=== PATIENT | male | born 1980 | race Hispanic/Latino ===

== ENCOUNTER 2018-04-17 21:33 | Inpatient (IN) | payer OTHER ==
[2018-04-17 23:19] LABS: Hematocrit 52.2 % (35.5-45.6); Hemoglobin 17.4 gm/dl (11.8-15.2); Mean Corpuscular HGB Conc 33 % (32-34); Mean Corpuscular Hemoglobin 32 pg (28-32); Mean Corpuscular Volume 96 fl (84-94); Platelet Count 279 K/mm3 (140-440); Red Blood Count 5.46 M/mm3 (3.65-5.03)
[2018-04-17 23:31] LABS: INR 1.05 (0.87-1.13); Partial Thromboplastin Time 32.3 Sec. (24.2-36.6)
[2018-04-17 23:35] LABS: Bilirubin,Urine SM (Negative); Blood,Urine NEG (Negative); Color,Urine Amber (Yellow); Mucus,Urine 3+ /HPF
[2018-04-17 23:40] LABS: Albumin 4.3 g/dL (3.9-5); BUN/Creatinine Ratio 19; Blood Urea Nitrogen 15 mg/dL (9-20); Hemolysis Index 8; Lipase 39 units/L (13-60)
[2018-04-17 23:51] LABS: Ictotest,Urine Negative (Negative)
[2018-04-17 23:59] LABS: Alanine Aminotransferase 1618 units/L (7-56)
[2018-04-18] MEDS ORDERED: NACL 0.9% 1000 ML 1,000 ML IV ONE (02:27)
[2018-04-18] MEDS ORDERED: PROTONIX IV ONE (02:27)
[2018-04-18] MEDS ORDERED: ZOFRAN IV ONE (02:28)
--- NOTE | 2018-04-18 02:54 | Emergency Department Report ---
HPI - General Chief Complaint: Abdominal Pain Time Seen by Provider: 04/18/18 02:17 - HPI HPI: 38-year-old male presents to the emergency department with a complaint of severe upper abdominal pain along with nausea and vomiting that started this evening around 8 PM. He says that he has started to vomit up bile and stomach acid. He also complains of having some loose stool since this morning that has been lack in appearance. He denies any past medical history. He has not taken anything for her symptoms. Presentation. No recent travel or sick contacts at home. He denies any fever, dysuria, back pain, chest pain or shortness of breath. He does admit to heavy alcohol use but denies alcoholism or dependence. He dips tobacco but does not smoke. ED Past Medical Hx - Past Medical History Previous Medical History?: Yes Hx Hypertension: Yes (lisinopril) Hx Pulmonary Embolism: Yes (Anxiety) Hx GERD: Yes Additional medical history: taking testerone for muscle building, - Surgical History Past Surgical History?: Yes Additional Surgical History: left knee sx - Social History Smoking Status: Former Smoker Substance Use Type: Alcohol ED Review of Systems ROS: Stated complaint: ABD PAIN/NAUSEA Other details as noted in HPI Comment: All other systems reviewed and negative Constitutional: denies: chills, fever Eyes: denies: eye pain, eye discharge, vision change ENT: denies: ear pain, throat pain Respiratory: denies: cough, shortness of breath, wheezing Cardiovascular: denies: chest pain, palpitations Gastrointestinal: abdominal pain, nausea, vomiting, diarrhea, melena Genitourinary: denies: urgency, dysuria Musculoskeletal: denies: back pain, joint swelling, arthralgia Skin: denies: rash, lesions Neurological: denies: headache, weakness, paresthesias Physical Exam - Physical Exam Vital Signs: Vital Signs 04/17/18 22:14 Temperature 98.3 F Pulse Rate 122 H Respiratory 18 Rate Blood Pressure 151/94 O2 Sat by Pulse 97 Oximetry Physical Exam: GENERAL: The patient is well-developed well-nourished. HENT: Normocephalic. Atraumatic. Patient has moist mucous membranes. EYES: Extraocular motions are intact. Pupils equal reactive to light bilaterally. NECK: Supple. Trachea is midline. CHEST/LUNGS: Clear to auscultation. There is no respiratory distress noted. HEART/CARDIOVASCULAR: Regular. There is mild to moderate tachycardia. There is no murmur. ABDOMEN: Abdomen is soft abdominal tenderness palpation. Mild guarding. Patient has normal bowel sounds. There is no abdominal distention. SKIN: There is no rash. There is no edema. There is no diaphoresis. NEURO: The patient is awake, alert, and oriented. The patient is cooperative. The patient has no focal neurologic deficits. The patient has normal speech and gait. MUSCULOSKELETAL: There is no tenderness or deformity. There is no limitation range of motion. There is no evidence of acute injury. ED Course Vital Signs 04/17/18 22:14 Temperature 98.3 F Pulse Rate 122 H Respiratory 18 Rate Blood Pressure 151/94 O2 Sat by Pulse 97 Oximetry ED Medical Decision Making - Lab Data Result diagrams: 04/17/18 23:01 04/17/18 23:01 - Radiology Data Radiology results: report reviewed, image reviewed interpreted by me: Abdominal x-ray shows some air-fluid levels and otherwise nonspecific bowel gas. EXAM: CT ABDOMEN PELVIS W CON HISTORY: abd pain, elevated LFTs TECHNIQUE: Routine axial imaging was obtained of the abdomen and pelvis following the intravenous injection of 100 cc of Omnipaque 300. Delayed imaging was obtained through the kidneys ureters and bladder. Sagittal and coronal reconstructions were reviewed. FINDINGS: Lung bases are clear. Pleural fluid is not seen. The liver is normal in size and reveal several small mildly enhancing lesions in the right hepatic lobe which corresponds to the hemangioma seen on the ultrasound examination. The gallbladder appears normal. There are no secondary signs of acute cholecystitis. The biliary tree is normal in caliber. The pancreas, spleen, and adrenal glands appear normal. The kidneys enhance normally. There is no evidence of hydronephrosis. There calcification of the abdominal aorta. The vasculatures enhance normally. The bowel loops are normal in caliber. There is radiopaque debris in the ascending colon. The appendix is not identified. There is no evidence of free fluid or adenopathy. There is a solitary loop of small bowel central in the pelvis without dilatation with an air for levels. This is non specific. Prostate gland and bladder appear normal. The skeletal structures reveal disc degeneration at the L4-5 and L5-S1 levels. IMPRESSION: No acute process in the abdomen and pelvis. Multiple small lesions in the right hepatic lobe noted corresponding to the hemangiomas seen on ultrasound. No evidence of acute cholecystitis. The biliary tree appears normal. Appendix not identified. No inflammatory process seen in the right lower quadrant. Arthritic changes at the L4-5 and L5-S1 levels. Transcribed By: VASHTI Dictated By: PHIL DE LA CRUZ MD Electronically Authenticated By: PHIL DE LA CRUZ MD Signed Date/Time: 04/18/18 0532 EXAM: US ABDOMEN LIMITED HISTORY: Upper abd pain, elevated LFTs, ETOH hx TECHNIQUE: Routine imaging was obtained of the right upper quadrant. FINDINGS: The gallbladder is normal in size and wall thickness. There is a solitary 1.3 cm stone in the neck of the gallbladder. A Lei sign was not elicited. The liver is normal size and reveals 4 hyperechoic solid nodules in the right hepatic lobe measuring up to 1.1 cm in diameter. These are most likely representing small hemangiomas. The liver otherwise is normal size. The common bile duct measures 2.5 mm. The pancreatic head appears normal. The body and tail are not well seen for evaluation. The right kidney is normal size contour and echotexture and shows no evidence of stones or hydronephrosis. Free fluid is not seen. IMPRESSION: Solitary gallstone in the neck of the gallbladder. No secondary signs of acute cholecystitis At least 4 hyperechoic lesions in the liver measuring up to 1.1 cm in diameter compatible with hemangiomas. Normal-appearing biliary tree. Transcribed By: VASHTI Dictated By: PHIL DE LA CRUZ MD Electronically Authenticated By: PHIL DE LA CRUZ MD Signed Date/Time: 04/18/18 0428 - Medical Decision Making Patient presents with some complaint of nausea, vomiting and upper abdominal pain starting last night and also some loose dark stool starting in the morning. His labs show a elevated bilirubin of 1.6 but more concerning is a AST of greater than 700 and an ALT greater than 1600. An ultrasound shows a large stone in the neck of the gallbladder but no signs of cholecystitis. CT scan shows the same gallstone but also shows liver hemangiomas. He has been given some pain control, antiemetics and IV fluid resuscitation. He will be admitted to the hospital for further evaluation and probable gastroenterology consultation. He was accepted for admission by the hospitalist, Dr. Cristobal. - Differential Diagnosis cholelithiasis, choledocholithiasis, cholecystitis, pancreatitis, hepatitis Critical Care Time: No Critical care attestation.: If time is entered above; I have spent that time in minutes in the direct care of this critically ill patient, excluding procedure time. ED Disposition Clinical Impression: Transaminitis, Elevated bilirubin Abdominal pain Qualifiers: Abdominal location: upper abdomen, unspecified Qualified Code(s): R10.10 - Upper abdominal pain, unspecified Nausea and vomiting Qualifiers: Vomiting type: unspecified Vomiting Intractability: non-intractable Qualified Code(s): R11.2 - Nausea with vomiting, unspecified Cholelithiasis Qualifiers: Cholelithiasis location: gallbladder Cholecystitis presence: without cholecystitis Biliary obstruction: without biliary obstruction Qualified Code(s) : K80.20 - Calculus of gallbladder without cholecystitis without obstruction Disposition: 09 OP ADMIT IP TO THIS HOSP Is pt being admited?: Yes Condition: Stable Referrals: PRIMARY CARE, [Primary Care Provider] - 3-5 Days Time of Disposition: 06:17
[2018-04-18 03:06] LABS: Band Neutrophils # (Manual) 0.6 K/mm3; Total Cells Counted 100
[2018-04-18 03:07] LABS: Anisocytosis 1+; Hypochromasia 1+
--- NOTE | 2018-04-18 03:14 | XRay Report ---
FINAL REPORT EXAM: XR ABDOMEN 2V HISTORY: abd pain TECHNIQUE: Supine and upright views of the abdomen were obtained. FINDINGS: There are several air-fluid levels involving small bowel and large bowel loops on the upright view. The bowel loops are not distended. Free air is not seen. There are phleboliths along the floor pelvis. The lung bases are clear. The skeletal structures otherwise well maintained. IMPRESSION: Nonspecific small air-fluid levels involving nondistended loops of small bowel and colon. A very mild nonobstructive ileus cannot entirely be excluded. No evidence of bowel obstruction or free air.
[2018-04-18] MEDS ORDERED: MORPHINE ONE (03:42)
[2018-04-18] MEDS ORDERED: MORPHINE IV ONE (03:51)
--- NOTE | 2018-04-18 04:33 | Ultrasound Report ---
FINAL REPORT EXAM: US ABDOMEN LIMITED HISTORY: Upper abd pain, elevated LFTs, ETOH hx TECHNIQUE: Routine imaging was obtained of the right upper quadrant. FINDINGS: The gallbladder is normal in size and wall thickness. There is a solitary 1.3 cm stone in the neck of the gallbladder. A Lei sign was not elicited. The liver is normal size and reveals 4 hyperechoic solid nodules in the right hepatic lobe measuring up to 1.1 cm in diameter. These are most likely representing small hemangiomas. The liver otherwise is normal size. The common bile duct measures 2.5 mm. The pancreatic head appears normal. The body and tail are not well seen for evaluation. The right kidney is normal size contour and echotexture and shows no evidence of stones or hydronephrosis. Free fluid is not seen. IMPRESSION: Solitary gallstone in the neck of the gallbladder. No secondary signs of acute cholecystitis At least 4 hyperechoic lesions in the liver measuring up to 1.1 cm in diameter compatible with hemangiomas. Normal-appearing biliary tree.
--- NOTE | 2018-04-18 05:37 | Cat Scan Report ---
FINAL REPORT EXAM: CT ABDOMEN PELVIS W CON HISTORY: abd pain, elevated LFTs TECHNIQUE: Routine axial imaging was obtained of the abdomen and pelvis following the intravenous injection of 100 cc of Omnipaque 300. Delayed imaging was obtained through the kidneys ureters and bladder. Sagittal and coronal reconstructions were reviewed. FINDINGS: Lung bases are clear. Pleural fluid is not seen. The liver is normal in size and reveal several small mildly enhancing lesions in the right hepatic lobe which corresponds to the hemangioma seen on the ultrasound examination. The gallbladder appears normal. There are no secondary signs of acute cholecystitis. The biliary tree is normal in caliber. The pancreas, spleen, and adrenal glands appear normal. The kidneys enhance normally. There is no evidence of hydronephrosis. There calcification of the abdominal aorta. The vasculatures enhance normally. The bowel loops are normal in caliber. There is radiopaque debris in the ascending colon. The appendix is not identified. There is no evidence of free fluid or adenopathy. There is a solitary loop of small bowel central in the pelvis without dilatation with an air for levels. This is non specific. Prostate gland and bladder appear normal. The skeletal structures reveal disc degeneration at the L4-5 and L5-S1 levels. IMPRESSION: No acute process in the abdomen and pelvis. Multiple small lesions in the right hepatic lobe noted corresponding to the hemangiomas seen on ultrasound. No evidence of acute cholecystitis. The biliary tree appears normal. Appendix not identified. No inflammatory process seen in the right lower quadrant. Arthritic changes at the L4-5 and L5-S1 levels.
[2018-04-18] MEDS ORDERED: NACL 0.9% 1000 ML 1,000 ML IV SCH (07:00)
[2018-04-18] MEDS ORDERED: TYLENOL PO PRN (08:44)
[2018-04-18] MEDS ORDERED: SODIUM CHLORIDE FLUSH SYRINGE 10 ML IV PRN (08:44)
[2018-04-18] MEDS ORDERED: APRESOLINE IV PRN (08:51)
--- NOTE | 2018-04-18 09:13 | History and Physical Report ---
History of Present Illness Date of examination: 04/18/18 Date of admission: 04/18/18 05:17 Chief complaint: Severe upper abdominal pain since 7 PM yesterday and associated with nausea and vomitings and diarrhea History of present illness: 38-year-old white male with the history of hypertension anxiety and gastroesophageal reflux disease apparently was at [employer] yesterday had 2 beers and started having nausea or vomiting along with upper abdominal pain around 7 PM yesterday. He was having diarrhea since the day before yesterday, and Pepto-Bismol. The diarrhea since then has improved and denies any loose bowel movements now. Presently he complains of nausea and upper abdominal pain. He denies any fever or chills. Past History Past Medical History: GERD, hypertension, other (anxiety disorder) Past Surgical History: Other (left knee surgery) Social history: smoking, other (drinks alcohol when he is not working) Family history: hypertension Medications and Allergies Allergies Allergy/AdvReac Type Severity Reaction Status Date / Time No Known Allergies Allergy Verified 04/18/18 03:58 Active Meds: Active Medications Acetaminophen (Tylenol) 650 mg PO Q4H PRN PRN Reason: Pain MILD(1-3)/Fever >100.5/PADILLA Heparin Sodium (Porcine) (Heparin) 5,000 unit SUB-Q Q8HR PIPPA Hydralazine HCl (Apresoline) 10 mg IV Q6H PRN PRN Reason: Hypertension Sodium Chloride (Nacl 0.9% 1000 Ml) 1,000 mls @ 150 mls/hr IV DIRECT PIPPA Dextrose/Sodium Chloride (D5/0.45ns) 1,000 mls @ 100 mls/hr IV DIRECT PIPPA Morphine Sulfate (Morphine) 2 mg IV Q4H PRN PRN Reason: Pain, Moderate (4-6) Ondansetron HCl (Zofran) 4 mg IV Q8H PRN PRN Reason: Nausea And Vomiting Pantoprazole Sodium (Protonix) 40 mg IV QDAY PIPPA Sodium Chloride (Sodium Chloride Flush Syringe 10 Ml) 10 ml IV BID PIPPA Sodium Chloride (Sodium Chloride Flush Syringe 10 Ml) 10 ml IV PRN PRN PRN Reason: LINE FLUSH Review of Systems Constitutional: no weight loss, no fever, no chills, no weakness Ears, nose, mouth and throat: no ear pain, no ear discharge, no nasal congestion , no sore throat Cardiovascular: no chest pain, no palpitations, no syncope Respiratory: no cough, no shortness of breath Gastrointestinal: abdominal pain (in the upper abdomen and right upper quadrant) , nausea, vomiting, diarrhea, no melena Genitourinary Male: no dysuria, no hematuria, no flank pain Rectal: no pain Musculoskeletal: no neck pain, no low back pain Integumentary: no rash Neurological: no head injury, no seizures, no syncope Psychiatric: anxiety, no depression Endocrine: no polydipsia, no polyuria Exam - Constitutional Vitals: Temp Pulse Resp BP Pulse Ox 98.1 F 76 16 124/76 98 04/18/18 07:38 04/18/18 07:38 04/18/18 07:38 04/18/18 07:38 04/18/18 07:38 General appearance: Present: no acute distress, well-nourished - EENT Eyes: Present: PERRL, EOM intact ENT: hearing intact, clear oral mucosa, no thrush - Neck Neck: Present: supple, normal ROM. Absent: masses or JVD - Respiratory Respiratory effort: normal Respiratory: bilateral: CTA, negative: rhonchi, wheezing - Cardiovascular Rhythm: regular Heart Sounds: Present: S1 & S2 - Extremities Extremities: No edema - Abdominal General gastrointestinal: Present: soft, tender (in the epigastrium and right upper quadrant). Absent: rigid, hepatomegaly, splenomegaly Male genitourinary: Present: deferred - Rectal Rectal Exam: deferred - Integumentary Integumentary: Present: clear - Musculoskeletal Musculoskeletal: strength equal bilaterally - Psychiatric Psychiatric: appropriate mood/affect - Neurologic Neurologic: CNII-XII intact, no focal deficits Results - Labs CBC & Chem 7: 04/17/18 23:01 04/17/18 23:01 Labs: Abnormal lab results 04/17/18 04/17/18 04/17/18 Range/Units 23:00 23:01 23:01 WBC 11.7 H (4.5-11.0) K/mm3 RBC 5.46 H (3.65-5.03) M/mm3 Hgb 17.4 H (11.8-15.2) gm/dl Hct 52.2 H (35.5-45.6) % MCV 96 H (84-94) fl Lymphocytes % (Manual) 12.0 L (13.4-35.0) % Monocytes % (Manual) 13.0 H (0.0-7.3) % Seg Neutrophils # Man 8.0 H (1.8-7.7) K/mm3 Monocytes # (Manual) 1.5 H (0.0-0.8) K/mm3 Sodium 135 L (137-145) mmol/L Chloride 95.8 L (98-107) mmol/L Glucose 107 H (75-100) mg/dL Total Bilirubin 1.60 H (0.1-1.2) mg/dL AST 727 H (5-40) units/L ALT 1618 H (7-56) units/L Ur Specific [place] 1.039 H (1.003-1.030) Assessment and Plan - Patient Problems (1) Cholelithiasis Current Visit: Yes Status: Acute Qualifiers: Cholelithiasis location: gallbladder Cholecystitis presence: without cholecystitis Biliary obstruction: without biliary obstruction Qualified Code(s): K80.20 - Calculus of gallbladder without cholecystitis without obstruction Plan to address problem: Abdominal ultrasound results reviewed Patient has stone in the neck of the gallbladder Keep patient nothing by mouth GI consult We will order MRCP We'll also request a general surgery consult (2) Anxiety disorder Current Visit: Yes Status: Chronic Qualifiers: Anxiety disorder type: unspecified anxiety disorder Qualified Code(s): F41.9 - Anxiety disorder, unspecified Plan to address problem: Patient apparently takes Ativan twice daily We will start the patient on IV Ativan as needed as the patient is nothing by mouth (3) Hypertension Current Visit: Yes Status: Chronic Qualifiers: Hypertension type: essential hypertension Qualified Code(s): I10 - Essential (primary) hypertension Plan to address problem: Start on IV hydralazine as needed for now (4) GERD (gastroesophageal reflux disease) Current Visit: Yes Status: Chronic Qualifiers: Esophagitis presence: without esophagitis Qualified Code(s): K21.9 - Gastro -esophageal reflux disease without esophagitis Plan to address problem: IV PPI once daily (5) Abdominal pain Current Visit: Yes Status: Acute Qualifiers: Abdominal location: upper abdomen, unspecified Qualified Code(s): R10.10 - Upper abdominal pain, unspecified Plan to address problem: Secondary to cholelithiasis CT of the abdomen results reviewed No evidence of cholecystitis Continue IV Protonix Pain control with morphine as needed (6) Nausea and vomiting Current Visit: Yes Status: Acute Qualifiers: Vomiting type: unspecified Vomiting Intractability: non-intractable Qualified Code(s): R11.2 - Nausea with vomiting, unspecified Plan to address problem: Secondary to cholelithiasis and acute transaminitis Zofran as needed IV (7) Transaminitis Current Visit: Yes Status: Acute Plan to address problem: Most likely secondary to stone in the gallbladder neck, however there is no evidence of obstructive jaundice at this time We will order an acute hepatitis panel
[2018-04-18] MEDS: MORPHINE IV PRN ×4 (09:41→21:05)
[2018-04-18] MEDS: ZOFRAN IV PRN ×2 (09:41→17:13)
[2018-04-18] MEDS: D5/0.45NS 1,000 ML IV SCH ×2 (09:42→16:13)
--- NOTE | 2018-04-18 12:48 | Gastroenterology Consultation ---
History of Present Illness - Reason for Consult Consult date: 04/18/18 acute liver injury Requesting physician: ELIU BRANDON - History of Present Illness Mr Haskins is a 38 yo male with h/o htn who presents with acute liver injury. Pt reports feeling unwell for ~1 week. Initially with muscle aches and symptoms of dehydration. he then had diarrhea starting ~2-3 days ago. he went to [employer] yesterday, ate nachos and several hours later started having worsening diarrhea (black appearing), and multiple n/v episodes (brown colored and recently ingested meals). He admits to h/o chronic alcohol use (pint of liquor, up to 12 beers on days he's not working). He has been taking testosterone for the past 4-5 months. He has been taking his anti-hypertensive medications daily. Denies tylenol use or sick contacts. No mental status changes or jaundice. Diarrhea has improved today. N/v has also improved today. No prior h/o known liver disease. Imaging reviewed with initial US showing stone in suspected GB neck; f/u CT scan w/o biliary dilatation/ obstruction signs. reports having some epigastric abd pain. occasional nsaid use. Past History Past Medical History: GERD, hypertension, other (anxiety disorder) Past Surgical History: Other (left knee surgery) Social history: smoking, other (drinks alcohol when he is not working) Family history: hypertension Medications and Allergies Allergies Allergy/AdvReac Type Severity Reaction Status Date / Time No Known Allergies Allergy Verified 04/18/18 03:58 Active Meds: Active Medications Acetaminophen (Tylenol) 650 mg PO Q4H PRN PRN Reason: Pain MILD(1-3)/Fever >100.5/PADILLA Heparin Sodium (Porcine) (Heparin) 5,000 unit SUB-Q Q8HR PIPPA Hydralazine HCl (Apresoline) 10 mg IV Q6H PRN PRN Reason: Hypertension Sodium Chloride (Nacl 0.9% 1000 Ml) 1,000 mls @ 150 mls/hr IV DIRECT PIPPA Dextrose/Sodium Chloride (D5/0.45ns) 1,000 mls @ 100 mls/hr IV DIRECT PIPPA Last Admin: 04/18/18 09:42 Dose: 100 mls/hr Morphine Sulfate (Morphine) 2 mg IV Q4H PRN PRN Reason: Pain, Moderate (4-6) Last Admin: 04/18/18 09:41 Dose: 2 mg Ondansetron HCl (Zofran) 4 mg IV Q8H PRN PRN Reason: Nausea And Vomiting Last Admin: 04/18/18 09:41 Dose: 4 mg Pantoprazole Sodium (Protonix) 40 mg IV QDAY PIPPA Sodium Chloride (Sodium Chloride Flush Syringe 10 Ml) 10 ml IV BID PIPPA Sodium Chloride (Sodium Chloride Flush Syringe 10 Ml) 10 ml IV PRN PRN PRN Reason: LINE FLUSH Review of Systems - Review of Systems All systems: negative (per HPI) Exam - Constitutional Vital Signs: Temp Pulse Resp BP Pulse Ox 98.1 F 76 20 124/76 98 04/18/18 07:38 04/18/18 07:38 04/18/18 09:41 04/18/18 07:38 04/18/18 07:38 General appearance: no acute distress - EENT Eyes: PERRL, EOM intact ENT: hearing intact, poor dentition - Neck Neck: supple, normal ROM - Respiratory Respiratory effort: normal Respiratory: bilateral: CTA - Cardiovascular Rhythm: regular Heart Sounds: Present: S1 & S2 Extremities: No edema, Full ROM - Gastrointestinal General gastrointestinal: Present: soft, tender (mild epigastric ttp), non- distended, normal bowel sounds - Integumentary Integumentary: Present: clear, warm - Musculoskeletal Musculoskeletal: normal - Neurologic Neurological: alert and oriented x3 - Psychiatric Psychiatric: appropriate mood/affect - Labs CBC & Chem 7: 04/17/18 23:01 04/17/18 23:01 Lab Results: Laboratory Results - last 24 hr 04/17/18 04/17/18 04/17/18 22:59 23:00 23:01 WBC 11.7 H RBC 5.46 H Hgb 17.4 H Hct 52.2 H MCV 96 H MCH 32 MCHC 33 RDW 15.0 Plt Count 279 Add Manual Diff Complete Total Counted 100 Seg Neuts % (Manual) 68.0 Band Neutrophils % 5.0 Lymphocytes % (Manual) 12.0 L Reactive Lymphs % (Man) 0 Monocytes % (Manual) 13.0 H Eosinophils % (Manual) 2.0 Metamyelocytes % 0 Myelocytes % 0 Promyelocytes % 0 Blast Cells % 0 Nucleated RBC % Not Reportable Seg Neutrophils # Man 8.0 H Band Neutrophils # 0.6 Lymphocytes # (Manual) 1.4 Abs React Lymphs (Man) 0.0 Monocytes # (Manual) 1.5 H Eosinophils # (Manual) 0.2 Basophils # (Manual) 0.0 Metamyelocytes # 0.0 Myelocytes # 0.0 Promyelocytes # 0.0 Blast Cells # 0.0 WBC Morphology Not Reportable Hypersegmented Neuts Not Reportable Hyposegmented Neuts Not Reportable Hypogranular Neuts Not Reportable Smudge Cells Not Reportable Toxic Granulation Not Reportable Toxic Vacuolation Not Reportable Dohle Bodies Not Reportable Pelger-Huet Anomaly Not Reportable Miller Rods Not Reportable Platelet Estimate Appears normal Clumped Platelets Not Reportable Plt Clumps, EDTA Not Reportable Large Platelets Not Reportable Giant Platelets Not Reportable Platelet Satelliting Not Reportable Plt Morphology Comment Not Reportable RBC Morphology Not Reportable Dimorphic RBCs Not Reportable Polychromasia Not Reportable Hypochromasia 1+ Poikilocytosis Not Reportable Anisocytosis 1+ Microcytosis Not Reportable Macrocytosis Not Reportable Spherocytes Not Reportable Pappenheimer Bodies Not Reportable Sickle Cells Not Reportable Target Cells Not Reportable Tear Drop Cells Not Reportable Ovalocytes Not Reportable Helmet Cells Not Reportable Morales-Stanwood Bodies Not Reportable [place] Rings Not Reportable [place] Cells Not Reportable Bite Cells Not Reportable Crenated Cell Not Reportable Elliptocytes Not Reportable Acanthocytes (Spur) Not Reportable Rouleaux Not Reportable Hemoglobin C Crystals Not Reportable Schistocytes Not Reportable Malaria parasites Not Reportable Mikel Bodies Not Reportable Hem Pathologist Commnt No PT INR APTT Sodium Potassium Chloride Carbon Dioxide Anion Gap BUN Creatinine Estimated GFR BUN/Creatinine Ratio Glucose Calcium Total Bilirubin AST ALT Alkaline Phosphatase Total Protein Albumin Albumin/Globulin Ratio Lipase Urine Color [place] Urine Turbidity Clear Urine pH 5.0 Ur Specific [place] 1.039 H Urine Protein 100 mg/dl Urine Glucose (UA) Neg Urine Ketones 20 Urine Blood Neg Urine Nitrite Neg Urine Bilirubin Sm Urine Ictotest Negative Urine Urobilinogen 4.0 Ur Leukocyte Esterase Neg Urine WBC (Auto) 2.0 Urine RBC (Auto) 3.0 U Epithel Cells (Auto) < 1.0 Urine Mucus 3+ Blood Type O POSITIVE Antibody Screen Negative 04/17/18 04/17/18 23:01 23:01 WBC RBC Hgb Hct MCV MCH MCHC RDW Plt Count Add Manual Diff Total Counted Seg Neuts % (Manual) Band Neutrophils % Lymphocytes % (Manual) Reactive Lymphs % (Man) Monocytes % (Manual) Eosinophils % (Manual) Metamyelocytes % Myelocytes % Promyelocytes % Blast Cells % Nucleated RBC % Seg Neutrophils # Man Band Neutrophils # Lymphocytes # (Manual) Abs React Lymphs (Man) Monocytes # (Manual) Eosinophils # (Manual) Basophils # (Manual) Metamyelocytes # Myelocytes # Promyelocytes # Blast Cells # WBC Morphology Hypersegmented Neuts Hyposegmented Neuts Hypogranular Neuts Smudge Cells Toxic Granulation Toxic Vacuolation Dohle Bodies Pelger-Huet Anomaly Miller Rods Platelet Estimate Clumped Platelets Plt Clumps, EDTA Large Platelets Giant Platelets Platelet Satelliting Plt Morphology Comment RBC Morphology Dimorphic RBCs Polychromasia Hypochromasia Poikilocytosis Anisocytosis Microcytosis Macrocytosis Spherocytes Pappenheimer Bodies Sickle Cells Target Cells Tear Drop Cells Ovalocytes Helmet Cells Morales-Stanwood Bodies [place] Rings Nneka Cells Bite Cells Crenated Cell Elliptocytes Acanthocytes (Spur) Rouleaux Hemoglobin C Crystals Schistocytes Malaria parasites Mikel Bodies Hem Pathologist Commnt PT 14.3 INR 1.05 APTT 32.3 Sodium 135 L Potassium 4.1 Chloride 95.8 L Carbon Dioxide 24 Anion Gap 19 BUN 15 Creatinine 0.8 Estimated GFR > 60 BUN/Creatinine Ratio 19 Glucose 107 H Calcium 9.0 Total Bilirubin 1.60 H AST 727 H ALT 1618 H Alkaline Phosphatase 107 Total Protein 7.0 Albumin 4.3 Albumin/Globulin Ratio 1.6 Lipase 39 Urine Color Urine Turbidity Urine pH Ur Specific [place] Urine Protein Urine Glucose (UA) Urine Ketones Urine Blood Urine Nitrite Urine Bilirubin Urine Ictotest Urine Urobilinogen Ur Leukocyte Esterase Urine WBC (Auto) Urine RBC (Auto) U Epithel Cells (Auto) Urine Mucus Blood Type Antibody Screen - Imaging CT Scan: report reviewed Ultrasound: report reviewed Assessment and Plan 1. Acute liver injury - primarily hepatocellular pattern. significant elevation. no signs of liver failure (mental status normal). denies tylenol use. unclear etiology. given symptoms/signs of dehydration and anti- hypertensive use, he may have become hypotensive with subsequent ischemic hepatitis. cont IVF's, and supportive care. will r/o other etiologies of liver disease including obstructive process 2. Gallstone - seen on US, no biliary dilatation on CT scan or signs of stone. will obtain MRCP to evaluate for obstructive process 3. History of alcohol abuse - counseled on cessation; solely not likely causing degree of enzyme elevation but likely has come contribution 4. Diarrhea -resolved for time being but check stool studies if returns 5. Nausea/vomiting - resolved for time being 6. Dark stools - H/H stable; may need eventual egd if black stools return, abd pain persists, or H/H drops 7. Abdominal pain - unclear etiology, broad ddx as listed above. monitor
[2018-04-18] MEDS: SODIUM CHLORIDE FLUSH SYRINGE 10 ML IV SCH ×2 (13:04→21:10)
[2018-04-18] MEDS: HEPARIN SUB-Q SCH ×2 (13:33→21:10)
[2018-04-18 14:17] LABS: Iron 69 ug/dL (49-181); Total Iron Binding Capacity 239 mcg/dL (250-450)
[2018-04-18 16:01] LABS: Hepatitis A Antibody IgM Non-Reactive (NonReactive); Hepatitis B Core IgM Reactive (NonReactive); Hepatitis B Surface Antigen Reactive (Negative); Hepatitis C Virus Antibody Non-Reactive (NonReactive)
[2018-04-18 17:28] LABS: Amphetamine Screen,Urine PRESUMPTIVE NEGATIVE; Benzodiazepines Screen,Urine PRESUMPTIVE NEGATIVE; Cannabinoid Screen,Urine PRESUMPTIVE NEGATIVE; Cocaine Screen,Urine PRESUMPTIVE NEGATIVE; Methadone Screen,Urine PRESUMPTIVE NEGATIVE
[2018-04-18 17:46] LABS: Opiate Screen,Urine PRESUMPTIVE POSITIVE
--- NOTE | 2018-04-18 17:56 | Consultation ---
History of Present Illness Consult date: 04/18/18 Reason for consult: gallstones Requesting physician: ELIU BRANDON Chief complaint: abdominal pain - History of present illness History of present illness: 38yo M presented to the ED with complaints of N/V and abdominal pain. Patient reports that he [place] when he began to vomit in the evening. Subsequently abdominal pain started in the epigastric area. He has been having loose stools for the past 3 days. Denies any fevers or chills. He otherwise has been feeling well. Denies any postprandial pain in the past. Has no sensitivities to particular foods. Has not had right upper quadrant pain that radiated to the back. Current pain does not go into the back or radiate around the right side. Past History Past Medical History: GERD, hypertension, other (anxiety disorder) Past Surgical History: Other (left knee surgery) Social history: smoking, other (drinks alcohol when he is not working) Family history: hypertension Medications and Allergies Allergies Allergy/AdvReac Type Severity Reaction Status Date / Time No Known Allergies Allergy Verified 04/18/18 03:58 Active Meds: Active Medications Acetaminophen (Tylenol) 650 mg PO Q4H PRN PRN Reason: Pain MILD(1-3)/Fever >100.5/PADILLA Heparin Sodium (Porcine) (Heparin) 5,000 unit SUB-Q Q8HR PIPPA Last Admin: 04/18/18 13:33 Dose: Not Given Hydralazine HCl (Apresoline) 10 mg IV Q6H PRN PRN Reason: Hypertension Sodium Chloride (Nacl 0.9% 1000 Ml) 1,000 mls @ 150 mls/hr IV DIRECT PIPPA Dextrose/Sodium Chloride (D5/0.45ns) 1,000 mls @ 100 mls/hr IV DIRECT PIPPA Last Admin: 04/18/18 16:13 Dose: 100 mls/hr Morphine Sulfate (Morphine) 2 mg IV Q4H PRN PRN Reason: Pain, Moderate (4-6) Last Admin: 04/18/18 17:13 Dose: 2 mg Ondansetron HCl (Zofran) 4 mg IV Q8H PRN PRN Reason: Nausea And Vomiting Last Admin: 04/18/18 17:13 Dose: 4 mg Pantoprazole Sodium (Protonix) 40 mg IV QDAY [facility] Sodium Chloride (Sodium Chloride Flush Syringe 10 Ml) 10 ml IV BID [facility] Last Admin: 04/18/18 13:04 Dose: Not Given Sodium Chloride (Sodium Chloride Flush Syringe 10 Ml) 10 ml IV PRN PRN PRN Reason: LINE FLUSH Review of Systems - Constitutional no weight loss, no fever, no chills, no chronic pain - Cardiovascular no chest pain, no palpitations, no rapid/irregular heart beat, no syncope, no lightheadedness - Respiratory no shortness of breath - Gastrointestinal abdominal pain (in epigastric area only), nausea, vomiting, diarrhea, heartburn , no constipation, no hematemesis, no coffee ground emesis, no BRBPR, no melena , no hematochezia, no dyspepsia/bloating - Genitourinary no dysuria - Muskuloskeletal no low back pain - Integumentary no pruritis, no jaundice Exam Vital Signs Temp Pulse Resp BP Pulse Ox 98.3 F 122 H 18 151/94 97 04/17/18 22:14 04/17/18 22:14 04/17/18 22:14 04/17/18 22:14 04/17/18 22:14 - General physical appearance Positive: no distress, no pain, other (does not appear ill) - Eyes Positive: normal occular movement. Negative: icteric - Neck Positive: trachea midline - Respiratory Positive: normal expansion, normal respiratory effort, clear to auscultation - Cardiovascular Rhythm: regular - Extremities Extremities: No edema, normal temperature, normal color - Abdomen Abdomen: Present: soft, tender (minimal in epigastric area), bowel sounds normal. Absent: distended, guarding, rigid, wound, surgical scars Hernia: none - Integumentary no rash, no growths, no abnormal pigmentation - Neurologic Neurologic: alert and oriented to time, place and person, motor strength and sensation are grossly intact - Psychiatric Psychiatric: appropriate mood/affect, intact judgment & insight Results - Labs 04/17/18 23:01 04/17/18 23:01 Abnormal lab results 04/17/18 04/17/18 04/17/18 Range/Units 23:00 23:01 23:01 WBC 11.7 H (4.5-11.0) K/mm3 RBC 5.46 H (3.65-5.03) M/mm3 Hgb 17.4 H (11.8-15.2) gm/dl Hct 52.2 H (35.5-45.6) % MCV 96 H (84-94) fl Lymphocytes % (Manual) 12.0 L (13.4-35.0) % Monocytes % (Manual) 13.0 H (0.0-7.3) % Seg Neutrophils # Man 8.0 H (1.8-7.7) K/mm3 Monocytes # (Manual) 1.5 H (0.0-0.8) K/mm3 Sodium 135 L (137-145) mmol/L Chloride 95.8 L (98-107) mmol/L Glucose 107 H (75-100) mg/dL TIBC (250-450) mcg/dL Total Bilirubin 1.60 H (0.1-1.2) mg/dL AST 727 H (5-40) units/L ALT 1618 H (7-56) units/L Ur Specific [place] 1.039 H (1.003-1.030) Acetaminophen (10.0-30.0) ug/mL Hep B Core IgM Ab (NonReactive) 04/18/18 04/18/18 04/18/18 Range/Units 09:13 13:19 13:19 WBC (4.5-11.0) K/mm3 RBC (3.65-5.03) M/mm3 Hgb (11.8-15.2) gm/dl Hct (35.5-45.6) % MCV (84-94) fl Lymphocytes % (Manual) (13.4-35.0) % Monocytes % (Manual) (0.0-7.3) % Seg Neutrophils # Man (1.8-7.7) K/mm3 Monocytes # (Manual) (0.0-0.8) K/mm3 Sodium (137-145) mmol/L Chloride (98-107) mmol/L Glucose (75-100) mg/dL TIBC 239 L (250-450) mcg/dL Total Bilirubin (0.1-1.2) mg/dL AST (5-40) units/L ALT (7-56) units/L Ur Specific [place] (1.003-1.030) Acetaminophen < 5.0 L (10.0-30.0) ug/mL Hep B Core IgM Ab Reactive A (NonReactive) Diabetes panel 04/17/18 Range/Units 23:01 Sodium 135 L (137-145) mmol/L Potassium 4.1 (3.6-5.0) mmol/L Chloride 95.8 L (98-107) mmol/L Carbon Dioxide 24 (22-30) mmol/L BUN 15 (9-20) mg/dL Creatinine 0.8 (0.8-1.5) mg/dL Glucose 107 H (75-100) mg/dL Calcium 9.0 (8.4-10.2) mg/dL AST 727 H (5-40) units/L ALT 1618 H (7-56) units/L Alkaline Phosphatase 107 (35-129) units/L Total Protein 7.0 (6.3-8.2) g/dL Albumin 4.3 (3.9-5) g/dL Calcium panel 04/17/18 Range/Units 23:01 Calcium 9.0 (8.4-10.2) mg/dL Albumin 4.3 (3.9-5) g/dL Pituitary panel 04/17/18 Range/Units 23:01 Sodium 135 L (137-145) mmol/L Potassium 4.1 (3.6-5.0) mmol/L Chloride 95.8 L (98-107) mmol/L Carbon Dioxide 24 (22-30) mmol/L BUN 15 (9-20) mg/dL Creatinine 0.8 (0.8-1.5) mg/dL Glucose 107 H (75-100) mg/dL Calcium 9.0 (8.4-10.2) mg/dL Adrenal panel 04/17/18 Range/Units 23:01 Sodium 135 L (137-145) mmol/L Potassium 4.1 (3.6-5.0) mmol/L Chloride 95.8 L (98-107) mmol/L Carbon Dioxide 24 (22-30) mmol/L BUN 15 (9-20) mg/dL Creatinine 0.8 (0.8-1.5) mg/dL Glucose 107 H (75-100) mg/dL Calcium 9.0 (8.4-10.2) mg/dL Total Bilirubin 1.60 H (0.1-1.2) mg/dL AST 727 H (5-40) units/L ALT 1618 H (7-56) units/L Alkaline Phosphatase 107 (35-129) units/L Total Protein 7.0 (6.3-8.2) g/dL Albumin 4.3 (3.9-5) g/dL - Imaging CT scan - abdomen: report reviewed, image reviewed CT scan - pelvis: report reviewed, image reviewed US - abdomen: report reviewed, image reviewed Assessment and Plan - Patient Problems (1) Cholelithiasis Current Visit: Yes Status: Acute Qualifiers: Cholelithiasis location: gallbladder Cholecystitis presence: without cholecystitis Qualified Code(s): K80.20 - Calculus of gallbladder without cholecystitis without obstruction Plan to address problem: Patient stable. Overall, the presentation and labs suggest more a primary hepatic process. I agree with G.I. Will follow-up on MRCP results. However, I do not think the gallbladder is currently an issue or has been in the past. At this point, would not recommend any surgical intervention. Will follow along. Please call with any questions. Time=45min
[2018-04-19] MEDS: D5/0.45NS 1,000 ML IV SCH ×2 (01:23→17:04)
[2018-04-19 05:41] LABS: Albumin 3.2 g/dL (3.9-5); BUN/Creatinine Ratio 6; Blood Urea Nitrogen 5 mg/dL (9-20); Calcium 7.9 mg/dL (8.4-10.2); Hemolysis Index 9
[2018-04-19 05:59] LABS: Alanine Aminotransferase 1178 units/L (7-56)
[2018-04-19] MEDS: MORPHINE IV PRN (06:52)
[2018-04-19] MEDS: ZOFRAN IV PRN (06:52)
[2018-04-19] MEDS: HEPARIN SUB-Q SCH ×3 (06:59→21:13)
[2018-04-19] MEDS ORDERED: PROTONIX IV SCH (10:00)
--- NOTE | 2018-04-19 10:53 | Gastroenterology Progress Note ---
Assessment and Plan 1. Acute liver injury - liver enzymes improved today. pattern suggestive of ischemic hepatitis which would be consistent with his symptoms of dehydration prior to admission. ruling out other etiologies in the mean time. MRCP completed 2. Gallstone - seen on US, no biliary dilatation on CT scan or signs of stone. f/u MRCP. pain has improved. surgery following. unsure if this is causing his abd pain but his symptoms are better 3. History of alcohol abuse - counseled on cessation again today 4. Diarrhea -resolved 5. Nausea/vomiting - improved, po trial today 6. Dark stools - hct on admission was normal; repeat to trend labs. bun normal so low suspicion for ugi bleeding 7. Abdominal pain - unclear etiology, but improved. monitor with po trial Subjective Date of service: 04/19/18 Principal diagnosis: acute liver injury Interval history: pt seen and examined. he's feeling better, less abd pain; denies n/v/diarrhea. wants to eat. s/p mrcp this morning Objective - Constitutional Vitals: Temp Pulse Resp BP Pulse Ox 98.0 F 66 18 146/67 96 04/19/18 04:30 04/19/18 04:30 04/19/18 04:30 04/19/18 04:30 04/19/18 04:30 General appearance: no acute distress - EENT ENT: poor dentition - Respiratory Respiratory effort: normal Respiratory: bilateral: CTA - Cardiovascular Rhythm: regular Heart Sounds: Present: S1 & S2 - Gastrointestinal General gastrointestinal: Present: soft, non-tender, non-distended - Neurologic Neurological: alert and oriented x3 - Psychiatric Psychiatric: appropriate mood/affect - Labs CBC & Chem 7: 04/17/18 23:01 04/19/18 04:40 Labs: Laboratory Results - last 24 hr 04/18/18 04/18/18 04/18/18 09:13 13:19 13:19 Sodium Potassium Chloride Carbon Dioxide Anion Gap BUN Creatinine Estimated GFR BUN/Creatinine Ratio Glucose Calcium Iron 69 TIBC 239 L Total Bilirubin AST ALT Alkaline Phosphatase Total Protein Albumin Albumin/Globulin Ratio Urine Opiates Screen Urine Methadone Screen Acetaminophen < 5.0 L Ur Barbiturates Screen Ur Phencyclidine Scrn Ur Amphetamines Screen U Benzodiazepines Scrn Urine Cocaine Screen U Marijuana (THC) Screen Drugs of Abuse Note Hepatitis A IgM Ab Non-reactive Hep Bs Antigen Reactive Hep B Core IgM Ab Reactive A Hepatitis C Antibody Non-reactive 04/18/18 04/19/18 17:05 04:40 Sodium 137 Potassium 3.7 Chloride 99.3 Carbon Dioxide 29 Anion Gap 12 BUN 5 L Creatinine 0.8 Estimated GFR > 60 BUN/Creatinine Ratio 6 Glucose 88 Calcium 7.9 L Iron TIBC Total Bilirubin 1.30 H AST 535 H ALT 1178 H Alkaline Phosphatase 79 Total Protein 5.7 L Albumin 3.2 L Albumin/Globulin Ratio 1.3 Urine Opiates Screen Presumptive positive Urine Methadone Screen Presumptive negative Acetaminophen Ur Barbiturates Screen Presumptive negative Ur Phencyclidine Scrn Presumptive negative Ur Amphetamines Screen Presumptive negative U Benzodiazepines Scrn Presumptive negative Urine Cocaine Screen Presumptive negative U Marijuana (THC) Screen Presumptive negative Drugs of Abuse Note Disclamer Hepatitis A IgM Ab Hep Bs Antigen Hep B Core IgM Ab Hepatitis C Antibody - Imaging CT scan: report reviewed Ultrasound: report reviewed
[2018-04-19] MEDS: SODIUM CHLORIDE FLUSH SYRINGE 10 ML IV SCH ×2 (11:03→21:14)
--- NOTE | 2018-04-19 13:34 | Progress Note ---
Assessment and Plan - Patient Problems (1) Cholelithiasis Current Visit: Yes Status: Acute Qualifiers: Cholelithiasis location: gallbladder Cholecystitis presence: without cholecystitis Qualified Code(s): K80.20 - Calculus of gallbladder without cholecystitis without obstruction (2) Anxiety disorder Current Visit: Yes Status: Chronic Qualifiers: Anxiety disorder type: unspecified anxiety disorder Qualified Code(s): F41.9 - Anxiety disorder, unspecified (3) Hypertension Current Visit: Yes Status: Chronic Qualifiers: Hypertension type: essential hypertension Qualified Code(s): I10 - Essential (primary) hypertension (4) GERD (gastroesophageal reflux disease) Current Visit: Yes Status: Chronic Qualifiers: Esophagitis presence: without esophagitis Qualified Code(s): K21.9 - Gastro -esophageal reflux disease without esophagitis (5) Abdominal pain Current Visit: Yes Status: Acute Qualifiers: Abdominal location: upper abdomen, unspecified Qualified Code(s): R10.10 - Upper abdominal pain, unspecified (6) Nausea and vomiting Current Visit: Yes Status: Acute Qualifiers: Vomiting type: unspecified Vomiting Intractability: non-intractable Qualified Code(s): R11.2 - Nausea with vomiting, unspecified (7) Transaminitis Current Visit: Yes Status: Acute Subjective Date of service: 04/19/18 Principal diagnosis: acute liver injury Interval history: HPI: 38-year-old white male with the history of hypertension anxiety and gastroesophageal reflux disease apparently was at [employer] yesterday had 2 beers and started having nausea or vomiting along with upper abdominal pain around 7 PM yesterday. He was having diarrhea since the day before yesterday, and Pepto-Bismol. The diarrhea since then has improved and denies any loose bowel movements now. Presently he complains of nausea and upper abdominal pain. He denies any fever or chills. 04/19 Patient is alert oriented and not in any distress. States abdominal pain is almost resolved He denies any nausea or vomiting, fever or chills GI and general surgery consult results reviewed and appreciated Lab results reviewed MRCP of the abdomen is pending 11 point review of systems is negative except as stated above in the history of present illness Assessment and plan: (1) Cholelithiasis Current Visit: Yes Status: Acute Qualifiers: Cholelithiasis location: gallbladder Cholecystitis presence: without cholecystitis Biliary obstruction: without biliary obstruction Qualified Code(s): K80.20 - Calculus of gallbladder without cholecystitis without obstruction Plan to address problem: Abdominal ultrasound results reviewed Patient has stone in the neck of the gallbladder GI and general surgery consults notes reviewed No plans for any surgery Awaiting MRCP Tolerating diet well (2) Anxiety disorder Current Visit: Yes Status: Chronic Qualifiers: Anxiety disorder type: unspecified anxiety disorder Qualified Code(s): F41.9 - Anxiety disorder, unspecified Plan to address problem: Patient apparently takes Ativan twice daily Continue Ativan as needed (3) Hypertension Current Visit: Yes Status: Chronic Qualifiers: Hypertension type: essential hypertension Qualified Code(s): I10 - Essential (primary) hypertension Plan to address problem: Fair and not on any medications (4) GERD (gastroesophageal reflux disease) Current Visit: Yes Status: Chronic Qualifiers: Esophagitis presence: without esophagitis Qualified Code(s): K21.9 - Gastro -esophageal reflux disease without esophagitis Plan to address problem: IV PPI once daily (5) Abdominal pain Current Visit: Yes Status: Acute Qualifiers: Abdominal location: upper abdomen, unspecified Qualified Code(s): R10.10 - Upper abdominal pain, unspecified Plan to address problem: Secondary to cholelithiasis Significantly improved (6) Nausea and vomiting Current Visit: Yes Status: Acute Qualifiers: Vomiting type: unspecified Vomiting Intractability: non-intractable Qualified Code(s): R11.2 - Nausea with vomiting, unspecified Plan to address problem: Secondary to cholelithiasis and acute transaminitis Improved (7) Transaminitis Current Visit: Yes Status: Acute Plan to address problem: LFTs are improving Acute hepatitis panel results reviewed Positive for hepatitis B IgG c/w acute hepatitis B Await GI recommendations Objective - Constitutional Vitals: Vital Signs - 12hr 04/19/18 04/19/18 04/19/18 04:30 07:17 07:22 Temperature 98.0 F Pulse Rate 66 59 L Respiratory 18 18 18 Rate Blood Pressure 146/67 130/88 Blood Pressure [Left] O2 Sat by Pulse 96 97 Oximetry 04/19/18 11:00 Temperature 98.1 F Pulse Rate 54 L Respiratory 18 Rate Blood Pressure Blood Pressure 130/88 [Left] O2 Sat by Pulse 96 Oximetry General appearance: Present: no acute distress - EENT Eyes: PERRL, EOM intact ENT: hearing intact, clear oral mucosa - Neck Neck: supple, normal ROM, no masses or JVD - Respiratory Respiratory effort: normal Respiratory: bilateral: CTA - Cardiovascular Rhythm: regular Heart Sounds: Present: S1 & S2 Extremities: No edema - Gastrointestinal General gastrointestinal: Present: soft, non-tender. Absent: hepatomegaly, splenomegaly - Integumentary Integumentary: clear - Musculoskeletal Musculoskeletal: strength equal bilaterally - Neurologic Neurologic: no focal deficits - Psychiatric Psychiatric: appropriate mood/affect - Labs CBC & Chem 7: 04/17/18 23:01 04/19/18 04:40 Labs: Abnormal lab results 04/18/18 04/18/18 04/18/18 Range/Units 09:13 13:19 13:19 BUN (9-20) mg/dL Calcium (8.4-10.2) mg/dL TIBC 239 L (250-450) mcg/dL Total Bilirubin (0.1-1.2) mg/dL AST (5-40) units/L ALT (7-56) units/L Total Protein (6.3-8.2) g/dL Albumin (3.9-5) g/dL Acetaminophen < 5.0 L (10.0-30.0) ug/mL Hep B Core IgM Ab Reactive A (NonReactive) 04/19/18 Range/Units 04:40 BUN 5 L (9-20) mg/dL Calcium 7.9 L (8.4-10.2) mg/dL TIBC (250-450) mcg/dL Total Bilirubin 1.30 H (0.1-1.2) mg/dL AST 535 H (5-40) units/L ALT 1178 H (7-56) units/L Total Protein 5.7 L (6.3-8.2) g/dL Albumin 3.2 L (3.9-5) g/dL Acetaminophen (10.0-30.0) ug/mL Hep B Core IgM Ab (NonReactive)
[2018-04-19] MEDS ORDERED: ATIVAN PO PRN (13:39)
--- NOTE | 2018-04-19 13:44 | Magnetic Resonance Report ---
FINAL REPORT EXAM: MR ABDOMEN MRCP HISTORY: gallstone COMPARISON: None. TECHNIQUE: MRCP sequences were performed. Multiplanar multisequential imaging of the abdomen was performed. No IV contrast was administered. FINDINGS: Lung bases: Normal. Visualized heart and mediastinum: Normal. Liver: Normal. Spleen: Normal. Pancreas: Normal. Gallbladder and Biliary Tree: There is no filling defect to suggest gallstones. The common duct is normal in caliber measuring up to 4 millimeters in diameter. There is no intrahepatic biliary ductal dilatation. Adrenal glands: Normal. Kidneys: Normal. No renal or ureteral calcifications. No hydronephrosis. Bowel: Normal. No evidence of obstruction. Peritoneum: No significant mesenteric adenopathy. No free fluid. Vasculature: Abdominal aorta is normal in caliber without evidence of aneurysm. Normal appearance of the portal venous system and inferior vena cava. Bones and soft tissues: Normal signal of the bones and soft tissues. IMPRESSION: Normal MRCP. No visualized gallstones or intraluminal masses. Normal size of the common duct.
[2018-04-20] MEDS: D5/0.45NS 1,000 ML IV SCH (04:11)
[2018-04-20] MEDS: HEPARIN SUB-Q SCH ×2 (05:31→18:16)
[2018-04-20 05:37] LABS: Albumin 3.3 g/dL (3.9-5); BUN/Creatinine Ratio 7; Blood Urea Nitrogen 5 mg/dL (9-20); Calcium 8.4 mg/dL (8.4-10.2); Hemolysis Index 6
[2018-04-20 05:50] LABS: Alanine Aminotransferase 1245 units/L (7-56)
[2018-04-20] MEDS: SODIUM CHLORIDE FLUSH SYRINGE 10 ML IV SCH (10:16)
--- NOTE | 2018-04-20 11:36 | Gastroenterology Progress Note ---
Assessment and Plan 1. Acute liver injury 2. Acute hepatitis B -labs/serologies consistent with acute hep b. admits to recent unprotected intercourse. discussed with pt and pts . she will need to be screened for hep b as well. no signs of acute liver failure (no mental status changes). treatment is primarily supportive and with expectant course of clearance over time. however, small percentage of adults can develop a chronic infection. regardless, he can be discharged from gi stand point with close follow-up and labs in 1 week. he needs to quit alcohol which was discussed in detail with pt. check full hep b serologies and arrange for outpt follow-up. will sign off, please call as needed or with questions. Subjective Date of service: 04/20/18 Principal diagnosis: acute liver injury Interval history: pt seen and examined. labs reviewed and serologies consistent with acute hep b. discussed with pt. reports having unprotected intercourse within the past 5 months. no jaundice or mental status changes. Objective - Constitutional Vitals: Temp Pulse Resp BP Pulse Ox 97.6 F 72 18 105/73 98 04/20/18 03:26 04/20/18 03:26 04/20/18 03:26 04/20/18 03:26 04/20/18 03:26 General appearance: no acute distress - EENT Eyes: PERRL, EOM intact ENT: poor dentition - Respiratory Respiratory effort: normal Respiratory: bilateral: CTA - Cardiovascular Rhythm: regular Heart Sounds: Present: S1 & S2 - Gastrointestinal General gastrointestinal: Present: soft, non-tender, non-distended - Neurologic Neurological: alert and oriented x3 - Psychiatric Psychiatric: appropriate mood/affect - Labs CBC & Chem 7: 04/17/18 23:01 04/20/18 04:46 Labs: Laboratory Results - last 24 hr 04/20/18 04:46 Sodium 140 Potassium 3.7 Chloride 102.5 Carbon Dioxide 28 Anion Gap 13 BUN 5 L Creatinine 0.7 L Estimated GFR > 60 BUN/Creatinine Ratio 7 Glucose 96 Calcium 8.4 Total Bilirubin 0.90 AST 516 H ALT 1245 H Alkaline Phosphatase 89 Total Protein 6.1 L Albumin 3.3 L Albumin/Globulin Ratio 1.2 - Imaging MRI: report reviewed
[2018-04-20 13:48] VITALS: BP 136/84
--- NOTE | 2018-04-20 15:48 | Discharge Summary ---
Providers - Providers Date of Admission: 04/18/18 05:17 Date of discharge: 04/20/18 Attending physician: JOSEPH LOPEZ 04/18/18 08:44 Consult to Physician [CONS] Routine Comment: Consulting Provider: SAI BURNS Physician Instructions: Reason For Exam: cholelithiais with obstrctive jaundice 04/18/18 08:49 Consult to Physician [CONS] Routine Comment: Consulting Provider: TIFFANY POLLARD Physician Instructions: Reason For Exam: cholelithiasis Primary care physician: WE[employer]ING IN[employer]CTOR Hospitalization Reason for admission: Epigstic pain, nause and vomiting Condition: Stable Pertinent studies: CT abdomen and pelvis showed Multiple hepatic lesion in the stomach consistent with hemangioma MRCP showed no intraductal stones Procedures: none Hospital course: 38-year-old white male with the history of hypertension anxiety and gastroesophageal reflux disease apparently was at [employer] yesterday had 2 beers and started having nausea or vomiting along with upper abdominal pain around 7 PM yesterday. He was having diarrhea since the day before yesterday, and Pepto-Bismol. The diarrhea since then has improved and denies any loose bowel movements now. Presently he complains of nausea and upper abdominal pain. He denies any fever or chills. On admission laboratory work up was remarkable for acute Hepatitis B. Live ezymes were elevated. GI consulted. MRCP ordered as CT abdomen and pelvis were remarkable for hepatic hemangiomas. MRCP she no intraductal stones. Gi recomemded discharging pt. The Liver enzymes will take its course and decline eventually. Alcohol cessation was advised. Pt was anxious to go home. Advised to f/u iw GI in 5-7 day and PCP in 3-5 days Disposition: DC-01 TO HOME OR SELFCARE Time spent for discharge: 35 mins - Discharge Diagnoses (1) Hepatitis B core antibody positive Status: Acute (2) Abdominal pain Status: Acute Qualifiers: Abdominal location: upper abdomen, unspecified Qualified Code(s): R10.10 - Upper abdominal pain, unspecified (3) Elevated bilirubin Status: Acute (4) Transaminitis Status: Acute Core Measure Documentation - Palliative Care Palliative Care/ Comfort Measures: Not Applicable - Core Measures Any of the following diagnoses?: none Exam - Constitutional Vitals: Temp Pulse Resp BP Pulse Ox 97.6 F 74 18 136/84 98 04/20/18 08:48 04/20/18 08:48 04/20/18 08:48 04/20/18 08:48 04/20/18 08:48 General appearance: Present: no acute distress, well-nourished - EENT Eyes: Present: PERRL - Neck Neck: Present: supple, normal ROM - Respiratory Respiratory effort: normal Respiratory: bilateral: CTA - Cardiovascular Heart Sounds: Present: S1 & S2. Absent: rub, click - Extremities Extremities: pulses symmetrical, No edema Peripheral Pulses: within normal limits - Abdominal General gastrointestinal: Present: soft, non-tender, non-distended, normal bowel sounds - Integumentary Integumentary: Present: clear, warm, dry - Musculoskeletal Musculoskeletal: gait normal, strength equal bilaterally - Psychiatric Psychiatric: appropriate mood/affect, intact judgment & insight - Neurologic Neurologic: CNII-XII intact, moves all extremities Plan Activity: advance as tolerated, other Weight Bearing Status: Non-Weight Bearing Diet: low fat (Alcohol cessation advised) Follow up with: PRIMARY CARE, [Primary Care Provider] - 3-5 Days
[2018-04-22 12:45] LABS: ANA Screen, IFA Negative (Negative)
== END 2018-04-20 18:11 | disposition home or self-care (01) | DRG 445 ==
LOC: ED 21:33 → 3A 04-18 05:17 → 3B-SURG 04-18 07:17
PROVIDERS: ADMIT Internal Medicine; ATTEND Family Medicine
DX: K80.20 Calculus of gallbladder without cholecystitis without obstruction (principal); B16.9 Acute hepatitis B without delta-agent and without hepatic coma; R17 Unspecified jaundice; S36.118A Other injury of liver, initial encounter; R74.0 Nonspecific elevation of levels of transaminase and lactic acid dehydrogenase [LDH]; F10.20 Alcohol dependence, uncomplicated; K21.9 Gastro-esophageal reflux disease without esophagitis; R19.7 Diarrhea, unspecified; X58.XXXA Exposure to other specified factors, initial encounter; D18.09 Hemangioma of other sites; I10 Essential (primary) hypertension; F41.9 Anxiety disorder, unspecified; Z86.711 Personal history of pulmonary embolism; Z87.891 Personal history of nicotine dependence; Z82.49 Family history of ischemic heart disease and other diseases of the circulatory system; Y93.89 Activity, other specified; Y92.89 Other specified places as the place of occurrence of the external cause; Y99.8 Other external cause status; Z71.41 Alcohol abuse counseling and surveillance of alcoholic
CPT/HCPCS: 36415; 74019; 74177; 74181; 76705; 80053; 80074; 80307; 80320; 81001; 82390; 83550; 83690; 85007; 85025; 85610; 85730; 86038; 86235; 86850; 86900; 86901; 87045; 93005; 93010; C9113; G0480; J1644; J2270; J2405; J7030; Q9967